=== PATIENT | female | born 1960 | race Caucasian/White ===

== ENCOUNTER 2016-11-26 05:06 | Emergency (ER) | payer OTHER | END 2016-11-26 06:05 | disposition left against medical advice (07) | LOC: ER1 05:06 | DX: Z53.21 Procedure and treatment not carried out due to patient leaving prior to being seen by health care provider (principal) ==

== ENCOUNTER 2016-12-11 01:35 | Emergency (ER) | payer OTHER | END 2016-12-11 05:00 | disposition home or self-care (01) | LOC: ER1 01:35 | DX: G43.901 Migraine, unspecified, not intractable, with status migrainosus (principal); E11.40 Type 2 diabetes mellitus with diabetic neuropathy, unspecified; I10 Essential (primary) hypertension; Z88.0 Allergy status to penicillin | CPT/HCPCS: 70450; 96374; 96375; 99283; J1885; J2765 ==

== ENCOUNTER → 2017-04-10 | Outpatient (CLI) | payer OTHER | LOC: EMI 12:49 | DX: F68.8 Other specified disorders of adult personality and behavior (principal); R90.89 Other abnormal findings on diagnostic imaging of central nervous system | CPT/HCPCS: 70551 ==

== ENCOUNTER 2020-12-18 01:45 | Emergency (ER) | payer OTHER ==
[~2020-12-18 01:45] MED LIST: ALBUTEROL1.25 MG/3 INH; HYDROCODON-ACE1 EAC4 PO; NEBULIZER UNIT INH; ZITHROMAX250 MG PO
[2020-12-18] MEDS ORDERED: LODINE CAP 300300 MG PO (02:15)
[2020-12-18] MEDS ORDERED: NORFLEX 100 MG100 MG PO (02:15)
== END 2020-12-18 03:35 | disposition home or self-care (01) ==
LOC: ER1 01:45
DX: M54.32 Sciatica, left side (principal); I10 Essential (primary) hypertension; E78.5 Hyperlipidemia, unspecified; E11.9 Type 2 diabetes mellitus without complications; E03.9 Hypothyroidism, unspecified; J45.909 Unspecified asthma, uncomplicated; Z90.49 Acquired absence of other specified parts of digestive tract; Z88.1 Allergy status to other antibiotic agents; Z88.0 Allergy status to penicillin
CPT/HCPCS: 73502; 96372; 99283; J1100; J1885; J2360

== ENCOUNTER 2021-08-27 16:38 | Emergency (ER) | payer OTHER ==
[~2021-08-27 16:38] MED LIST changes: +LODINE CAP 300300 MG PO; +NORFLEX 100 MG100 MG PO
[2021-08-27] MEDS ORDERED: ELIQUIS5 MG PO (20:15)
== END 2021-08-27 20:30 | disposition home or self-care (01) ==
LOC: ER1 16:38
DX: I82.432 Acute embolism and thrombosis of left popliteal vein (principal); I82.442 Acute embolism and thrombosis of left tibial vein; I10 Essential (primary) hypertension; E11.40 Type 2 diabetes mellitus with diabetic neuropathy, unspecified
CPT/HCPCS: 73562; 85379; 93971; 99284

== ENCOUNTER 2021-11-13 18:57 | Emergency (ER) | payer OTHER ==
[~2021-11-13 18:57] MED LIST changes: +ELIQUIS5 MG PO
[2021-11-13 19:32] LABS: HEMOGLOBIN 14.3 gm/dl (12.3-15.3); RED BLOOD COUNT 4.82 M/UL (4.00-5.10); WHITE BLOOD COUNT 8.6 K/UL (4.5-11.0)
[2021-11-13 19:49] LABS: BUN/CREATININE RATIO 22 (0-10)
== END 2021-11-13 22:17 | disposition left against medical advice (07) ==
LOC: ER1 18:57
PROVIDERS: Family Medicine
DX: R22.42 Localized swelling, mass and lump, left lower limb (principal); I10 Essential (primary) hypertension; E11.9 Type 2 diabetes mellitus without complications
CPT/HCPCS: 80053; 85025; 85379; 85610; 85730; 99283